=== PATIENT | male | born 1955 | race Caucasian/White ===

== ENCOUNTER 2016-10-25 18:36 | Observation (INO) | payer OTHER ==
[~2016-10-25] VITALS: Ht 180.3 cm; Wt 100.0 kg
[2016-10-25 18:38] VITALS: BP 125/77; PULSE 123; RESP 16; TEMP 97.9; O2SAT 92
[2016-10-25 19:40] LABS: BASOPHIL % 0.6 % (0.0-2.0); EOSINOPHIL # 0.1 TH/MM3 (0-0.4); EOSINOPHIL % 1.2 % (0.0-4.0); HEMATOCRIT 42.3 % (39.0-51.0); HEMO FLAGS DIFF FINAL; LYMPH % 32.8 % (9.0-44.0); LYMPHOCYTE # 2.3 TH/MM3 (1.0-4.8); MEAN CELL VOLUME 91.5 FL (80.0-100.0); MONO % 9.6 % (0.0-8.0); NEUT % 55.8 % (16.0-70.0); PLATELET COUNT 151 TH/MM3 (150-450); RED BLOOD COUNT 4.62 MIL/MM3 (4.50-5.90); RED CELL DISTRIBUTION WIDTH 13.4 % (11.6-17.2); WHITE BLOOD COUNT 7.1 TH/MM3 (4.0-11.0)
[2016-10-25 20:04] LABS: ANION GAP 9 MEQ/L (5-15); AST (GOT) 14 U/L (15-37); BICARBONATE 26.8 MEQ/L (21.0-32.0); BLOOD UREA NITROGEN 17 MG/DL (7-18); CHLORIDE 104 MEQ/L (98-107); GLOMERULAR FILTRATION RATE 67 ML/MIN (>89); POTASSIUM 3.7 MEQ/L (3.5-5.1); SODIUM (NA) 140 MEQ/L (136-145)
[2016-10-25 20:08] LABS: ALKALINE PHOSPHATASE 39 U/L (45-117); ALT (GPT) 26 U/L (12-78); TOTAL BILIRUBIN ADULT 0.3 MG/DL (0.2-1.0)
--- NOTE | 2016-10-25 20:12 | PD ---
HPI Chief Complaint: Cardiac Complaint Time Seen by Provider: 19:17 Travel History International Travel<30 days: No Contact w/Intl Traveler<30days: No Traveled to known affect area: No History of Present Illness HPI This is a 61-year-old male who presents to the emergency department with an AICD fired twice while he was having intercourse earlier today, resolved, severe. He denies any preceding chest pain, lightheadedness or dizziness. He says that his AICD has fired about 12 times in the past year. He is a [facility] patient but has been unwilling to travel to [place] to have his AICD checked on her and evidently the [facility] will pay for him to follow-up with [facility]. [facility] Past Medical History Arthritis: Yes Asthma: No Blood Disorders: No Anxiety: Yes Depression: Yes Heart Rhythm Problems: No Cancer: No Cardiovascular Problems: Yes (PACER--/AICD) High Cholesterol: Yes Chest Pain: Yes Congestive Heart Failure: Yes COPD: No Cerebrovascular Accident: No Diabetes: Yes (TAKES PO GLIPIZIDE AND METFORMIN) Patient Takes Glucophage: Yes Diminished Hearing: No Endocrine: Yes Gastrointestinal Disorders: Yes GERD: No Genitourinary: No Headaches: Yes Hepatitis: No Hiatal Hernia: No Hypertension: Yes Immune Disorder: No Implanted Vascular Access Dvce: Yes Kidney Stones: No Musculoskeletal: Yes (SPINAL ) Neurologic: Yes (SPINAL INJ (NEUROPATHY)) Psychiatric: Yes Reproductive: No Respiratory: Yes Migraines: No Renal Failure: Yes (acute renal failure now resolved.) Seizures: No Sleep Apnea: Yes Thyroid Disease: No Ulcer: No PNEUMOCCOCAL Vaccine (Year): 2 Past Surgical History Abdominal Surgery: No AICD: Yes (MEDTRONIC SERIAL #[id number] MODEL #[id number]) Arteriovenous Shunt: No Body Medical Devices: AICD/PACER Ear Surgery: No Endocrine Surgery: No Eye Surgery: No Genitourinary Surgery: No Gynecologic Surgery: No Insulin Pump: No Joint Replacement: No Oral Surgery: No Pacemaker: Yes Thoracic Surgery: Yes Tonsillectomy: Yes (2013) Other Surgery: Yes Social History Alcohol Use: No (HX) Tobacco Use: No Substance Use: No Allergies-Medications (Allergen,Severity, Reaction): Coded Allergies: No Known Allergies (Verified , 07/28/16) Reported Meds & Prescriptions Reported Meds & Active Scripts Active Active Prescriptions or Reported Medications Unobtainable Review of Systems Except as stated in HPI: all other systems reviewed are Neg Physical Exam Narrative GENERAL:Well appearing, no acute distress SKIN: Warm and dry. HEAD: Atraumatic. Normocephalic. EYES: Pupils equal and round. No injection or drainage. ENT: Moist mucous membranes NECK: Trachea midline. CARDIOVASCULAR: Regular rate and rhythm. No murmur appreciated. RESPIRATORY: Clear to auscultation. Breath sounds equal bilaterally. GASTROINTESTINAL: Abdomen soft, non-tender, nondistended. MUSCULOSKELETAL: No obvious deformities. NEUROLOGICAL: Awake and alert. No obvious cranial nerve deficits. Moving all extremities. PSYCHIATRIC: Appropriate mood and affect; insight and judgment normal. Data Data Last Documented VS Vital Signs Date Time Temp Pulse Resp B/P Pulse Ox O2 Delivery O2 Flow Rate FiO2 10/25/16 20:04 Room Air 10/25/16 18:38 97.9 123 16 125/77 92 Orders Electrocardiogram (10/25/16 ) Complete Blood Count With Diff (10/25/16 19:17) Comprehensive Metabolic Panel (10/25/16 19:17) Troponin I (10/25/16 19:17) ^ Insert Iv (10/25/16 19:17) Admit Order (Ed Use Only) (10/25/16 23:32) Labs Laboratory Tests Test 10/25/16 19:23 White Blood Count 7.1 TH/MM3 Red Blood Count 4.62 MIL/MM3 Hemoglobin 14.8 GM/DL Hematocrit 42.3 % Mean Corpuscular Volume 91.5 FL Mean Corpuscular Hemoglobin 32.0 PG Mean Corpuscular Hemoglobin 35.0 % Concent Red Cell Distribution Width 13.4 % Platelet Count 151 TH/MM3 Mean Platelet Volume 9.5 FL Neutrophils (%) (Auto) 55.8 % Lymphocytes (%) (Auto) 32.8 % Monocytes (%) (Auto) 9.6 % Eosinophils (%) (Auto) 1.2 % Basophils (%) (Auto) 0.6 % Neutrophils # (Auto) 4.0 TH/MM3 Lymphocytes # (Auto) 2.3 TH/MM3 Monocytes # (Auto) 0.7 TH/MM3 Eosinophils # (Auto) 0.1 TH/MM3 Basophils # (Auto) 0.0 TH/MM3 CBC Comment DIFF FINAL Differential Comment Sodium Level 140 MEQ/L Potassium Level 3.7 MEQ/L Chloride Level 104 MEQ/L Carbon Dioxide Level 26.8 MEQ/L Anion Gap 9 MEQ/L Blood Urea Nitrogen 17 MG/DL Creatinine 1.11 MG/DL Estimat Glomerular Filtration 67 ML/MIN Rate Random Glucose 241 MG/DL Calcium Level 8.9 MG/DL Total Bilirubin 0.3 MG/DL Aspartate Amino Transf 14 U/L (AST/SGOT) Alanine Aminotransferase 26 U/L (ALT/SGPT) Alkaline Phosphatase 39 U/L Troponin I 0.02 NG/ML Total Protein 7.5 GM/DL Albumin 3.4 GM/DL MDM Medical Decision Making Medical Screen Exam Complete: Yes Emergency Medical Condition: Yes Interpretation(s) Afebrile, tachycardic, normotensive No leukocytosis Electrolytes are reassuring Troponin is normal Differential Diagnosis Ventricular tachycardia, ventricular fibrillation, SVT, electrolyte abnormality Narrative Course This is a 61-year-old male who presents to the emergency department having had 2 firings of his AICD earlier today. He was placed on a monitor and an IV was established. Labs are obtained which were reassuring. His device was interrogated by [employer] and they found that he had 2 episodes of ventricular tachycardia with appropriate shocks. 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 Patient will be placed in observation for telemetry and cardiology consultation in the morning. Diagnosis Primary Impression: AICD discharge Admitting Information Admitting Physician Requests: Observation Scripts Unable to Obtain Active Prescriptions or Reported Meds Radha Cassidy MD Oct 25, 2016 20:12
[2016-10-25 23:30] VITALS: BP 132/71; PULSE 84; RESP 16
--- NOTE | 2016-10-25 23:44 | HHI.HP ---
[facility] Admission Diagnosis ventricular tachycardia Diagnoses: (1) AICD discharge Diagnosis: Principal (2) DM (diabetes mellitus) Diagnosis: Principal (3) HTN (hypertension) Diagnosis: Principal (4) Non-compliance Diagnosis: Principal Travel History International Travel<30 Days: No Contact w/Intl Traveler <30 Da: No Traveled to Known Affected Are: No History of Present Illness This is a 61-year-old male with a PMH of HTN, Hyperlipidemia, Anxiety, Depression, DM, CAD s/p AICD and Non-compliance who presented to the ER after AICD fired x2 during intercourse. Reports AICD has fired multiple times in the past year. Follows at the [place], but has been non-compliant w/ office visits or AICD interrogation-states he doesn't want to drive to [facility] for AICD check. On arrival, BP 125/77, HR 123, O2 sat 92% on RA, Afebrile. CBC unremarkable. Chemistry essentially unremarkable except for GFR of 67. BS 241. Troponin negative. Patient currently without complaints. Review of Systems Except as stated in HPI: all other systems reviewed are Neg ROS: 14 point review of systems otherwise negative. Past Family Social History Past Medical History PMH: HTN, Hyperlipidemia, Anxiety, Depression, DM, CAD s/p AICD and Non- compliance Past Surgical History PAST SURGICAL HISTORY: AICD, Tonsillectomy Allergies: Coded Allergies: No Known Allergies (Verified , 07/28/16) Family History PAST FAMILY HISTORY: Reviewed. No h/o DM or CAD Social History PAST SOCIAL HISTORY: Negative for alcohol, tobacco or drugs. Physical Exam Vital Signs Vital Signs Date Time Temp Pulse Resp B/P Pulse Ox O2 Delivery O2 Flow Rate FiO2 10/25/16 20:04 Room Air 10/25/16 18:38 97.9 123 16 125/77 92 Physical Exam PE: GENERAL: Middle-aged white male in no acute distress. HEENT: PERRLA, EOMI. No scleral icterus or conjunctival pallor. No lid lag or facial droop. CARDIOVASCULAR: Regular rate and rhythm. No obvious murmurs to auscultation. No chest tenderness to palpation. RESPIRATORY: No obvious rhonchi or wheezing. Clear to auscultation. Breath sounds equal bilaterally. GASTROINTESTINAL: Abdomen soft, non-tender, nondistended. BS normal. MUSCULOSKELETAL: Extremities without clubbing, cyanosis, or edema. No obvious deformities. NEUROLOGICAL: Awake, alert and oriented x4. No focal neurologic deficits. Moving both upper and lower extremities spontaneously. Laboratory Laboratory Tests Test 10/25/16 19:23 White Blood Count 7.1 Red Blood Count 4.62 Hemoglobin 14.8 Hematocrit 42.3 Mean Corpuscular Volume 91.5 Mean Corpuscular Hemoglobin 32.0 Mean Corpuscular Hemoglobin 35.0 Concent Red Cell Distribution Width 13.4 Platelet Count 151 Mean Platelet Volume 9.5 Neutrophils (%) (Auto) 55.8 Lymphocytes (%) (Auto) 32.8 Monocytes (%) (Auto) 9.6 Eosinophils (%) (Auto) 1.2 Basophils (%) (Auto) 0.6 Neutrophils # (Auto) 4.0 Lymphocytes # (Auto) 2.3 Monocytes # (Auto) 0.7 Eosinophils # (Auto) 0.1 Basophils # (Auto) 0.0 CBC Comment DIFF FINAL Differential Comment Sodium Level 140 Potassium Level 3.7 Chloride Level 104 Carbon Dioxide Level 26.8 Anion Gap 9 Blood Urea Nitrogen 17 Creatinine 1.11 Estimat Glomerular Filtration 67 Rate Random Glucose 241 Calcium Level 8.9 Total Bilirubin 0.3 Aspartate Amino Transf 14 (AST/SGOT) Alanine Aminotransferase 26 (ALT/SGPT) Alkaline Phosphatase 39 Troponin I 0.02 Total Protein 7.5 Albumin 3.4 Result Diagram: 10/25/16192210/25/161922 Assessment and Plan Problem List: (1) AICD discharge ICD Code: Z45.02 Status: Acute (2) HTN (hypertension) ICD Code: I10 Status: Acute (3) Non-compliance ICD Code: Z91.19 Status: Acute (4) DM (diabetes mellitus) ICD Code: E11.9 Status: Acute Assessment and Plan A/P: 1. AICD Firing: x2, during intercourse. AICD (Medtronic Device), no further AICD firing. Trop negative, EKG w/ no acute findings. AICD Interrogation. Will Consult Cardiology for further recommendations. 2. Non-Compliance: Pt non-compliant w/ follow-up/device interrogation. Counselled on importance of following up as outpatient. 3. DM: Sliding scale w/ Accu-Cheks. Non-compliant w/ meds. Check Hgb A1c. 4. HTN: BP 120-150's while in ER. Will monitor. 5. DVT Prophylaxis: SCD/Teds. 6. Social work for d/c planning as needed. 7. Case discussed w/ ER physician at length. Lorrie Bowles MD Oct 25, 2016 23:44
[2016-10-25] MEDS ORDERED: ONDANSETRON HCL 4 MG/2 ML VIAL IVP PRN (23:45)
[2016-10-25] MEDS ORDERED: ACETAMINOPHEN/HYDROcodone 325 MG/5 MG TAB PO PRN (23:45)
[2016-10-25] MEDS ORDERED: MORPHINE SULFATE 4 MG/ML INJ IV PRN (23:45)
[2016-10-25] MEDS ORDERED: ACETAMINOPHEN 325 MG TAB PO PRN (23:45)
[2016-10-25] MEDS ORDERED: SODIUM CHLORIDE 0.9% FLUSH 5 ML FLUSH FLUSH PRN (23:45)
[2016-10-25] MEDS ORDERED: BISACODYL 10 MG SUPP PR PRN (23:45)
[2016-10-26] MEDS: SODIUM CHLOR 0.9% 1000 ML INJ 1,000 ML IV SCH ×2 (01:09→09:44)
[2016-10-26 02:53] VITALS: PULSE 73
[2016-10-26 04:44] VITALS: BP 144/81; PULSE 78; RESP 18; TEMP 98.4; O2SAT 98
[2016-10-26 07:51] LABS: AUTOMATED NEUTROPHIL # 3.8 TH/MM3 (1.8-7.7); BASOPHIL % 0.2 % (0.0-2.0); EOSINOPHIL # 0.1 TH/MM3 (0-0.4); EOSINOPHIL % 1.8 % (0.0-4.0); HEMATOCRIT 40.9 % (39.0-51.0); HEMO FLAGS DIFF FINAL; LYMPH % 37.8 % (9.0-44.0); LYMPHOCYTE # 2.8 TH/MM3 (1.0-4.8); MEAN CELL VOLUME 90.7 FL (80.0-100.0); MEAN CORPUSCULAR HEMOGLOBIN 31.8 PG (27.0-34.0); MONO % 10.2 % (0.0-8.0); PLATELET COUNT 140 TH/MM3 (150-450); RED BLOOD COUNT 4.51 MIL/MM3 (4.50-5.90); RED CELL DISTRIBUTION WIDTH 13.5 % (11.6-17.2); WHITE BLOOD COUNT 7.5 TH/MM3 (4.0-11.0)
[2016-10-26 08:12] VITALS: PULSE 79
[2016-10-26 08:12] LABS: ALKALINE PHOSPHATASE 26 U/L (45-117); ALT (GPT) 20 U/L (12-78); ANION GAP 10 MEQ/L (5-15); AST (GOT) 12 U/L (15-37); BLOOD UREA NITROGEN 17 MG/DL (7-18); CHLORIDE 106 MEQ/L (98-107); GLOMERULAR FILTRATION RATE 86 ML/MIN (>89); POTASSIUM 3.7 MEQ/L (3.5-5.1); SODIUM (NA) 141 MEQ/L (136-145); TOTAL BILIRUBIN ADULT 0.5 MG/DL (0.2-1.0)
[2016-10-26 08:49] VITALS: BP 139/80; PULSE 80; RESP 20; TEMP 98.3; O2SAT 96
[2016-10-26 08:53] LABS: MAGNESIUM 1.9 MG/DL (1.5-2.5)
[2016-10-26] MEDS ORDERED: SODIUM CHLORIDE 0.9% FLUSH 5 ML FLUSH FLUSH SCH (09:00)
[2016-10-26] MEDS ORDERED: METOPROLOL TARTRATE 50 MG TAB PO SCH (09:00)
[2016-10-26] MEDS ORDERED: LISINOPRIL 10 MG TAB PO SCH (09:00)
--- NOTE | 2016-10-26 09:23 | RADRPT ---
EXAM DATE/TIME: 10/26/2016 09:00 [facility] COMPARISON: CHEST SINGLE AP, July 28, 2016, 20:00. INDICATIONS : Cardiomyopathy. MEDICAL HISTORY : Hypertension. SURGICAL HISTORY : Pacemaker. ENCOUNTER: Initial ACUITY: 2 days PAIN SCORE: 4/10 LOCATION: chest FINDINGS: Portable AP view of the chest demonstrates a normal-sized cardiac silhouette. No effusion, consolidat ion, or pneumothorax is visualized. The bones and soft tissues demonstrate no acute abnormality. Left chest wall cardiac pacing device/AICD is present. CONCLUSION: Stable chest x-ray. No acute cardiopulmonary abnormality is identified. Italo Kang MD on October 26, 2016 at 9:20 Board Certified Radiologist. This report was verified electronically.
[2016-10-26] MEDS ORDERED: POTASSIUM CHLORIDE 10 MEQ CONTROLLED RELEASE TAB PO ONE (10:15)
[2016-10-26] MEDS ORDERED: GLUCAGON 1 MG/ML VIAL OTHER PRN (10:15)
[2016-10-26] MEDS ORDERED: DEXTROSE 50% IN WATER 50 ML VIAL(D50) IV PUSH PRN (10:15)
[2016-10-26] MEDS: INSULIN ASPART SUPPLEMENTAL SCALE SQ SCH ×2 (11:00→16:00)
--- NOTE | 2016-10-26 11:03 | HHI.PR ---
Subjective Remarks Follow-up for AICD fire. Brother at bedside. Patient states that he's had multiple episodes of AICD fire in the last few months, seems to only happen during intercourse. The patient complains that he woke up with a headache today. He does have chronic headaches secondary to cervical disc disease. Headache is 78/10, although it is improving. The patient denies any chest soreness. He does have chronic wounds on his right leg that he's been dressing himself. He is not sure exactly what all the medications he is on at home. Objective Vitals Vital Signs Date Time Temp Pulse Resp B/P Pulse Ox O2 Delivery O2 Flow Rate FiO2 10/26/16 08:49 98.3 80 20 139/80 96 10/26/16 08:12 79 10/26/16 04:44 98.4 78 18 144/81 98 10/26/16 02:53 73 10/25/16 23:30 84 16 132/71 10/25/16 20:04 Room Air 10/25/16 18:38 97.9 123 16 125/77 92 I/O 10/25/16 10/25/16 10/25/16 10/26/16 10/26/16 10/26/16 07:00 15:00 23:00 07:00 15:00 23:00 Intake Total 200 ml Balance 200 ml Intake IV Total 200 ml Result Diagram: 10/26/16 0608 10/26/16 0608 Imaging Last Impressions Chest X-Ray 10/26/16 0000 Signed Impressions: Service Date/Time: Wednesday, October 26, 2016 09:00 - CONCLUSION: Stable chest x-ray. No acute cardiopulmonary abnormality is identified. Italo Kang MD Objective Remarks GENERAL: Well-developed well-nourished. In no acute distress. SKIN: Warm and dry. Multiple small chronic appearing ulcers on the medial right lower extremity without surrounding cellulitis or drainage. HEENT: Normocephalic. Pupils equal and round. Mucous membranes pink and moist. CARDIOVASCULAR: Regular rate and rhythm. No murmur appreciated. RESPIRATORY: No accessory muscle use. Clear to auscultation. Breath sounds equal bilaterally. GASTROINTESTINAL: Abdomen soft, non-tender, nondistended. Bowel sounds x4. MUSCULOSKELETAL: No obvious deformities. No clubbing or cyanosis. Trace edema. NEUROLOGICAL: Awake and alert. No focal neurological deficits. Moves upper and lower extremities spontaneously. Normal speech. PSYCHIATRIC: Appropriate mood and affect; insight and judgment normal. A/P Problem List: (1) AICD discharge ICD Code: Z45.02 Status: Acute (2) HTN (hypertension) ICD Code: I10 Status: Chronic (3) Non-compliance ICD Code: Z91.19 Status: Acute (4) DM (diabetes mellitus) ICD Code: E11.9 Status: Chronic Assessment and Plan 61-year-old male with a PMH of HTN, Hyperlipidemia, Anxiety, Depression, DM, CAD s/p AICD and Non-compliance who presented after AICD fired x2 during intercourse CMP with AICD Firing: x2, during intercourse. AICD (Medtronic Device), no further AICD firing. Trop negative, EKG w/ no acute findings. AICD Interrogation reviewed, fired during detected V fib tachycardia. Cardiology consulted, ordered echocardiogram and stress test. Check TSH. Give potassium. Non-Compliance: Pt non-compliant w/ follow-up/device interrogation. Counselled. DM: Sliding scale w/ Accu-Cheks. Reconcile and resume home medications. HTN: Reconcile and resume home medications. Cardiology started the patient on metoprolol and lisinopril. Chronic diabetic wounds of the right lower extremity: Consult wound care. [place] hose for edema. DVT Prophylaxis: SCD/Teds. Written by Remigio Brown, acting as scribe for Dr. Mcdaniel on 10/26/16 at 11:03. All or portions of this note were transcribed by scribe []. I, Dr. Charli Mcdaniel personally performed the history, physical exam, and medical decision making; and confirmed the accuracy of the information in the transcribed note. Authenticated by Dr. Charli Mcdaniel on 10/26/16 at 15:08. Problem Qualifiers (1) HTN (hypertension): Qualified Code: I10 - Essential hypertension Remigio Brown Oct 26, 2016 11:03 Charli Mcdaniel MD Oct 26, 2016 15:08
--- NOTE | 2016-10-26 11:44 | MB ---
cc: SABRINA OKEEFE MD DATE OF CONSULTATION: 10/26/2016 REASON FOR CONSULTATION: Angel Dickinson is a 61 year old Gentleman who has a history of a nonischemic cardiomyopathy with automatic implantable cardiac defibrillator implantation approximately 5 years ago he had been followed in the [place] and with local cardiology. [facility] and because of because of the permanent stents he has ceased follow up with them. He has noted that since his since March of this past year his device has fired 17 times, it fired twice yesterday during intercourse and he decided to the hospital for further evaluation. He has been compliant with his medications, although he is not sure what he is taking besides glipizide and metformin. He is a nonsmoker and nondrinker. He notes discomfort when his pacemaker goes off but otherwise no angina is present. He has had no episodes to suggest heart failure in terms of orthopnea or paroxysmal nocturnal dyspnea. He is dyspneic on exertion with mild exertion. He had cardiac catheterization done in 2010 demonstrated normal coronaries with severe left ventricular dysfunction of 15-20%. PAST MEDICAL HISTORY: Otherwise significant for type 2 diabetes. ALLERGIES None. PHYSICAL EXAMINATION: IN GENERAL: On physical exam he is awake and alert. He is in no acute distress. VITAL SIGNS: A blood pressure 140/80, pulse 78. NECK: There is no neck vein distension. Carotids are normal. LUNGS: Lungs are clear. CARDIOVASCULAR SYSTEM: Exam reveals a regular rate and rhythm with no murmur or gallop noted. EXTREMITIES: The extremities reveal no edema. LABORATORY EXAMINATION: The laboratory examination demonstrates normal potassium and renal function is well-preserved, troponin is normal of 0.02. His electrocardiogram shows evidence for left axis deviation and old inferior myocardial infarction no acute ST or T-wave changes were noted. ASSESSMENT/PLAN: The patient has had numerous firings of his AICD over the past 6-8 months and on interrogation his last episode was from ventricular tachycardia is unclear what medicines he is taking but in 2013 was taking carvedilol 25 mg twice a day, lisinopril 10 mg daily. In view of his cardiomyopathy with certainly continue his lisinopril as an change his carvedilol at this point time to metoprolol 50 mg twice a day. I will check a magnesium level as well as a Lexiscan for further evaluation MD Katerin Gaviria /8:05 AM /11:27 AM
[2016-10-26] MEDS ORDERED: REGADENOSON INJ 0.4 MG/5 ML SYR ONE (12:12)
--- NOTE | 2016-10-26 13:10 | RADRPT ---
EXAM DATE/TIME: 10/26/2016 11:11 [facility] COMPARISON: No previous studies available for comparison. INDICATIONS : Substernal chest pain with multiple AICD shocks. Angina. Abnormal EKG. DOSE: 30.1 mCi Tc99m Myoview at stress. 10.1 mCi Tc99m Myoview at rest. 0.4 mg Lexiscan STRESS SYMPTOMS: Headache and dyspnea. EJECTION FRACTION: 23% MEDICAL HISTORY : Hypertension. Diabetes mellitus type 2. SURGICAL HISTORY : Tonsillectomy. AICD placement. ENCOUNTER: Initial ACUITY: 1 day PAIN SCALE: 5/10 LOCATION: Substernal chest TECHNIQUE: The patient underwent pharmacologic stress with infusion of prescribed dose. Continuous ECG tracing was monitored during stress. Gated SPECT imaging was performed after stress and conventional SPECT i maging was performed at rest. The examination was performed on a SPECT/CT scanner, both attenuation and non-corrected datasets were reviewed. FINDINGS: DISTRIBUTION: The maximum perfused segment at stress is in the anterior wall. PERFUSION STUDY: Fairly broad but mild reversible perfusion deficit seen at the apex, adjacent septum and in the infer ior wall. Probably an old apical and inferoseptal infarct. GATED STUDY: There is left ventricular dilatation and global hypokinesia. CONCLUSION: 1. Stress-induced ischemia at the apex, adjacent septum and inferior wall. 2. Probable old apical and inferoseptal infarct. 3. Left ventricular dilatation and global hypokinesia with a markedly reduced left ventricular ejecti on fraction. RISK CATEGORY: High Italo Holcomb MD on October 26, 2016 at 13:06 Board Certified Radiologist. This report was verified electronically.
[2016-10-26] MEDS ORDERED: AMIT1TAB79 PO (15:08)
[2016-10-26] MEDS ORDERED: CARB100C CHEW (15:08)
[2016-10-26] MEDS ORDERED: LITH300C2 PO (15:08)
[2016-10-26] MEDS ORDERED: ALPR2TAB3 PO (15:08)
[2016-10-26] MEDS ORDERED: PROP40TA3 PO (15:08)
[2016-10-26] MEDS ORDERED: SOMA350T PO (15:08)
[2016-10-26] MEDS ORDERED: ASPIRIN EC 325 MG TABEC PO SCH (15:15)
--- NOTE | 2016-10-26 15:22 | EC ---
Study Study Date:10/26/2016 STUDY CONCLUSIONS SUMMARY - Left ventricle: The cavity size was dilated. Wall thickness was normal. Systolic function was severely reduced. The estimated ejection fraction was in the range of 25% to 30%. Diffuse hypokinesis. - Aortic valve: Valve area: 1.5cm^2 (Vmax). - Mitral valve: Mild regurgitation. - Tricuspid valve: Mild regurgitation. If LV function is below 40, please consider prescribing an ACEI or ARB or document rationale for non-use. PROCEDURE DATA STUDY STATUS: Elective. Procedure: Transthoracic echocardiography. Image quality was good. Scanning was performed from the parasternal, apical, and subcostal acoustic windows. Study completion: The patient tolerated the procedure well. Transthoracic echocardiography. M-mode, complete 2D, complete spectral Doppler, and color Doppler. Height: Height: 71in. Weight: Weight: 219.5lb. Body mass index: BMI: 30.7kg/m^2. Body surface area: BSA: 2.2m^2. Patient status: Inpatient. CARDIAC ANATOMY LEFT VENTRICLE: The cavity size was dilated. Wall thickness was normal. Systolic function was severely reduced. The estimated ejection fraction was in the range of 25% to 30%. Diffuse hypokinesis. AORTIC VALVE: Trileaflet; normal thickness leaflets. Doppler: Transvalvular velocity was within the normal range. There was no stenosis. No regurgitation. Valve area: 1.5cm^2 (Vmax). Indexed valve area: 0.68cm^2/m^2 (Vmax). AORTA: Aortic root: The aortic root was normal in size. MITRAL VALVE: Structurally normal valve. Doppler: Transvalvular velocity was within the normal range. There was no evidence for stenosis. Mild regurgitation. LEFT ATRIUM: The atrium was normal in size. RIGHT VENTRICLE: The cavity size was normal. Wall thickness was normal. PULMONIC VALVE: Doppler: Transvalvular velocity was within the normal range. There was no evidence for stenosis. No regurgitation. TRICUSPID VALVE: Structurally normal valve. Doppler: Transvalvular velocity was within the normal range. Mild regurgitation. PULMONARY ARTERY: The main pulmonary artery was normal-sized. Systolic pressure was within the normal range. RIGHT ATRIUM: The atrium was normal in size. PERICARDIUM: There was no pericardial effusion. SYSTEMIC VEINS: Inferior vena cava: The vessel was normal in size. Patient weight: 219.5lb _Ejection fraction:_ 65-75% _Fractional shortening:_ 32% up to 5Kg 5-11.5Kg 11.6-22.9Kg 23-45Kg 45-57Kg Aortic Root 7-13 <17 13-22 17-27 17-27 LA diam 6-13 <23 24-38 33-47 37-40 RVID 10-17 7-15 7-15 7-18 8-17 LVIDd 12-22 <32 24-38 33-47 37-40 LVPW 2-4 3-6 5-7 6-8 7-8 IVS 2-4 3-6 5-7 6-8 7-8 BASIC MEASUREMENTS ADULT NORMAL Left ventricle LV internal dimension, ED, chordal *68.4 mm 43-52 level, PLAX LV internal dimension, ES, chordal *61.6 mm 23-38 level, PLAX Fractional shortening, chordal level, *10 % >29 PLAX LV posterior wall thickness, ED 9.04 mm IVS/LVPW ratio, ED 0.99 <1.3 Ventricular septum Septal thickness, ED 8.93 mm Aortic valve Leaflet separation 19 mm 15-26 BASIC MEASUREMENTS ADULT NORMAL Aortic valve Leaflet separation 19 mm 15-26 Aorta Root diameter, ED 34 mm 20-37 Left atrium Anterior-posterior dimension, ES 32 mm 19-40 Anterior-posterior dimension index, ES 1.45 cm/m^2 <2.2 LA/aortic root ratio 0.94 DOPPLER MEASUREMENTS ADULT NORMAL Main pulmonary artery Pressure, S 20 mm Hg =30 Aortic valve Peak velocity, S 119 cm/s Valve area, Vmax 1.5 cm^2 Valve area index, Vmax 0.68 cm^2/m^2 Mitral valve Peak E-wave velocity 59.7 cm/s Peak A-wave velocity 85.9 cm/s Deceleration time 208 ms 150-230 Peak E/A ratio 0.7 Maximal regurgitant velocity 310 cm/s Tricuspid valve Regurgitant peak velocity 187 cm/s Peak RV-RA gradient, S 14 mm Hg Maximal regurgitant velocity 187 cm/s Systemic veins Estimated CVP 10 mm Hg Right ventricle RV pressure, S 24 mm Hg <30 Pulmonic valve Peak velocity, S 97.7 cm/s LEGEND: Mean values are shown as u=mean value. Asterisk (*) harris values outside specified normal range. Prepared and signed by Michael Schreiber [id number]
[2016-10-26] MEDS ORDERED: METF1000 PO (15:25)
[2016-10-26] MEDS ORDERED: SPIR25 PO (15:25)
[2016-10-26] MEDS ORDERED: ASPI81TA5 PO (15:25)
[2016-10-26] MEDS ORDERED: LISI2.5T3 PO (15:25)
[2016-10-26] MEDS ORDERED: GABA100C4 PO (15:25)
[2016-10-26] MEDS ORDERED: GLIP10TA6 PO (15:25)
[2016-10-26] MEDS ORDERED: DIGO0.25 PO (15:25)
[2016-10-26 15:40] VITALS: PULSE 78
[2016-10-26 16:56] VITALS: BP 138/84; PULSE 80; RESP 20; TEMP 98; O2SAT 98
[2016-10-26] MEDS ORDERED: IOHEXOL 350 MG/ML 50 ML BTL (for Cath Lab) OTHER ONE (17:05)
[2016-10-26] MEDS ORDERED: MIDAZOLAM HCL 2 MG/2 ML VIAL ONE (17:13)
[2016-10-26] MEDS ORDERED: VERAPAMIL HCL 5 MG/2 ML VIAL ONE (17:13)
[2016-10-26] MEDS ORDERED: HEPARIN SODIUM - IV 10,000 UNITS/10 ML VIAL ONE (17:13)
[2016-10-26] MEDS ORDERED: HEPARIN-NS/PF INJ 500 ML ONE (17:13)
[2016-10-26] MEDS ORDERED: METO-309 PO (18:36)
[2016-10-26] MEDS ORDERED: LISI10TA3 PO (18:36)
[2016-10-26] MEDS ORDERED: Aspirin Ec PO (18:36)
--- NOTE | 2016-10-26 19:43 | EKG ---
Date Performed: 10/25/2016 Time Performed: 18:45:40 PTAGE: 61 years EKG: SINUS TACHYCARDIA INFERIOR MYOCARDIAL INFARCTION Nonspecific ST and T wave abnormalities AB NORMAL ECG INTERPRETATION BASED ON A DEFAULT AGE OF 40 YEARS PREVIOUS TRACING : 07/28/2016 19.49 Compared to prior tracing no significant change DOCTOR: Trevor Hinojosa Interpretating Date/Time 10/26/2016 19:42:47
--- NOTE | 2016-10-26 19:47 | MB ---
cc: OLLIE VINES DATE OF CONSULTATION: 10/26/2016. REASON FOR CONSULTATION: Interventional cardiology consultation for positive stress test. HISTORY OF PRESENT ILLNESS: 61-year-old male with a past medical history significant for nonischemic cardiomyopathy status post AICD 5 years ago who is following at [facility] who presented to the hospital after having experienced two AICD shocks. He reports being compliant with medications. He underwent nuclear stress test today showing some reversible ischemia in the apex region thus interventional cardiology has been consulted for further management and evaluation. REVIEW OF SYSTEMS: Negative except for that mentioned in the history of present illness. PAST MEDICAL HISTORY: 1. Type 2 diabetes. 2. Nonischemic cardiomyopathy. ALLERGIES: NO KNOWN DRUG ALLERGIES. FAMILY HISTORY: Noncontributory PHYSICAL EXAMINATION: VITAL SIGNS: Temperature 98, respiratory rate 20, heart rate 80, blood pressure 138/84, 02 saturations are 98% RA GENERAL: He is awake, alert and oriented times three in no acute distress resting in bed. HEAD, EYES, EARS, NOSE, THROAT/NECK: The patient has no jugular venous distention. No carotid bruits. HEART: Regular rate and rhythm. There are no murmurs, rubs or gallops. LUNGS: Clear to auscultation bilaterally. ABDOMEN: The abdomen is soft, nontender and nondistended with positive bowel sounds. EXTREMITIES: There is no cyanosis or edema. Pulses throughout. DATA: CBC: Hemoglobin 14, hematocrit of 40, platelet count of 140,000. Chemistries: Sodium 141, potassium 3.7, BUN 17, creatinine 0.90. Troponin 0.02. Toxicology negative. Chest x-ray shows no acute pulmonary process. Myocardial perfusion study: Stress-induced ischemia at the apex. There is also a left ventricular dilation and global hypokinesia. ASSESSMENT AND PLAN: 61-year-old male with known nonischemic cardiomyopathy presenting after having experienced two appropriate AICD shocks. The device was interrogated by the [employer] rep and the interrogation showed appropriate shocks in the setting of ventricular tachycardia.Given the patient's presentation and positive stress test, I think it is reasonable to do a left heart catheterization to further assess coronary artery disease. Risks and benefits of left heart cath including but not limited to infection, bleeding acute kidney failure, neurovascular trauma, ND, emergent bypass surgery, stroke and have been explained to the patient. The patient understands the risks and he is willing to proceed. RECOMMENDATIONS: 1. Keep NPO for left heart catheterization today. 2. Continue current medical therapy. Further therapy to be determined. MD VALDEMAR Kent/[place] /5:19 PM /7:34 PM RADHA
--- NOTE | 2016-10-26 20:34 | MA ---
cc: OLLIE VINES DATE: 10/26/2016. PROCEDURE PERFORMED: Left heart catheterization, selective right and left coronary angiography. APPROACH: Right transradial. INDICATIONS FOR THE PROCEDURE: Positive stress test. AICD shocks. DESCRIPTION OF THE PROCEDURE IN DETAIL: Consent signed. The patient was brought into the cardiac refuse laborer in a fasting state. The right wrist was prepped and draped in the sterile fashion. Using 1% lidocaine for local anesthesia and a micropuncture kit, a 6-Portuguese sheath was inserted into the right radial artery and an antispasmodic cocktail was given. Then selective right and left coronary angiography was performed with a JR-4 and a JL-3.5 diagnostic catheters. Angiography was taken in multiple views. Then the JR-4 catheter was introduced over a wire to the left ventricular. Left ventricular pressures were recorded followed by pullback. The patient tolerated the procedure well without complications. ESTIMATED BLOOD LOSS: Estimated blood loss less than 30 mL. TOTAL CONTRAST USED: 75 mL. The right radial access site was closed with a TR band. RESULTS: Left ventricular pressure WAS 115/90 with an left ventricular end diastolic pressure of 12. The aortic pressure was 104/69 with a mean of 84. There was no gradient upon pullback from the left ventricle to the aorta. ANGIOGRAPHIC RESULTS: LEFT MAIN: Wide open, patent, nonobstructive coronary artery disease. LEFT ANTERIOR DESCENDING: Transapical vessel. It has minimal luminal irregularities. Distally it has a 40% lesion. RAMUS: The ramus is a patent vessel with nonobstructive coronary artery disease. LEFT CIRCUMFLEX: The left circumflex is a big vessel. It is a dominant vessel giving off the PDA and it has minimal luminal irregularities and EMMA III flow and nonobstructive coronary artery disease. FIRST OBTUSE MARGINAL: The first obtuse marginal branch is also patent with EMMA III flow and nonobstructive coronary artery disease. CONCLUSIONS: 1. Nonischemic cardiomyopathy. 2. Normal coronary arteries. 3. Normal left ventricular end diastolic pressure. RECOMMENDATIONS: Continue medical management for nonischemic cardiomyopathy. MD VALDEMAR Kent/[facility] /6:05 PM /8:27 PM MTDRickey
[2016-10-31] MEDS ORDERED: KETAMINE HCL 500 MG/5 ML VIAL ONE (08:33)
== END 2016-10-26 20:03 | disposition home or self-care (01) ==
LOC: NEPA 18:36 → NEDA 23:34 → NEPHCDU 10-26 01:30 → HCIS 10-26 17:55
PROVIDERS: ADMIT Internal Medicine; ATTEND Internal Medicine
DX: I25.10 Atherosclerotic heart disease of native coronary artery without angina pectoris (principal); T82.198A Other mechanical complication of other cardiac electronic device, initial encounter; I42.9 Cardiomyopathy, unspecified; I10 Essential (primary) hypertension; E11.622 Type 2 diabetes mellitus with other skin ulcer; L98.499 Non-pressure chronic ulcer of skin of other sites with unspecified severity; E78.5 Hyperlipidemia, unspecified; F41.9 Anxiety disorder, unspecified; Z91.19 Patient's noncompliance with other medical treatment and regimen; F32.9 Major depressive disorder, single episode, unspecified; M19.90 Unspecified osteoarthritis, unspecified site; E78.00 Pure hypercholesterolemia, unspecified; Z79.84 Long term (current) use of oral hypoglycemic drugs; Y83.1 Surgical operation with implant of artificial internal device as the cause of abnormal reaction of the patient, or of later complication, without mention of misadventure at the time of the procedure
CPT/HCPCS: 71010; 78452; 80053; 80156; 80162; 82948; 83735; 84443; 84484; 85025; 93005; 93017; 93306; 93458; 99285; A9502; C1769; C1893; G0378; J1644; J2250; J2785; J3010; J7030; Q9967